=== PATIENT | female | born 1985 | race Two or more races ===

== ENCOUNTER 2017-01-14 14:12 | Emergency (ER) | payer MEDICAID ==
[~2017-01-14] VITALS: Ht 165.1 cm; Wt 59.4 kg
[~2017-01-14 14:12] MED LIST: KEFLEX500 MG ORAL; OMEPRAZOLE40 M1 ORAL
[2017-01-14] MEDS ORDERED: NITROFURANTOIN100 M2 ORAL (14:21)
[2017-01-14] MEDS ORDERED: IRON 100 PLUS1 EACH PO (14:23)
[2017-01-14 14:30] VITALS: BP 113/68
--- NOTE | 2017-01-14 14:39 | Emergency Room Report ---
History of Present Illness General Chief Complaint: Abdominal Pain Source: Patient Present Illness HPI Patient presents with flank pain fever and chills that began on Thursday. The pain is 8 or 9/10 at this time, pressure and aching and constant. 2 weeks ago she had a blood transfusion for hemoglobin of 6.2. This was at [facility]. She states she is always anemic and usually runs a hemoglobin about 7. She's noticed that her eyes are yellowish color. She denies upper respiratory symptoms chest pain. She's been nauseated but no vomiting. She's been moving her bowels without any trouble. Her last period was January 01. Nausea, no vomit. No dyspnea, chest pain, extremity pain. H/O UTI in past. Allergies: Coded Allergies: No Known Allergies (Unverified , 06/15/15) Patient History Past Medical History: see triage record Social History: Denies: smoking - former Social History Narrative youngest 10 yo Last Menstrual Period: 01/01/2017 Reviewed Nursing Documentation: PMH: Agreed, PSxH: Agreed Nursing Documentation-PMH Past Medical History: No History, Except For Hx Gastrointestinal Problems: Yes - kidney and Gallstone Review of Systems All Other Systems: negative except mentioned in HPI Physical Exam Vital Signs Date Time Temp Pulse Resp B/P Pulse Ox O2 Delivery O2 Flow Rate FiO2 01/14/17 14:16 98.2 89 16 113/68 99 Room Air Sp02 EP Interpretation: reviewed, normal General Appearance: well appearing, no apparent distress, GCS 15 Head: normocephalic Eyes: bilateral eye EOMI, bilateral eye PERRL, bilateral eye scleral icterus ENT: moist mucus membranes Neck: supple Respiratory: lungs clear, normal breath sounds Cardiovascular #1: regular rate, rhythm Cardiovascular #2: 2+ radial (R) Gastrointestinal: normal inspection, normal bowel sounds, non tender, no mass, non-distended Genitourinary: CVA tenderness (R) Musculoskeletal: back normal, gait/station normal, normal range of motion Neurologic: alert, oriented x3, grossly normal Psychiatric: mood/affect normal Skin: normal inspection, warm/dry Medical Decision Making Diagnostic Impression: Primary Impression: Pyelonephritis Additional Impression: History of blood transfusion ER Course The patient presents with flank pain, fever with scleral icterus. Differential includes arthritis, transfusion reaction, UTI, muscle strain, viral syndrome amongst others. Evaluation will be with laboratory including transfusion reaction testing, CBC, CMP blood cultures and lactate. The patient be treated with IV hydration and also Toradol. Pyuria present. IV rocephin begun. Elevated bili. Haptoglobin high. H/H improved (from baseline and reported transfusion. Eyal pending. Improved with treatment. Discussed findings. Patient stable for outpatient observation and treatment. Laboratory Tests Test 01/14/17 14:45 White Blood Count 10.3 K/UL (4.8-10.8) Red Blood Count 3.88 M/UL (4.20-5.40) L Hemoglobin 8.5 G/DL (12.0-16.0) L Hematocrit 27.7 % (37.0-47.0) L Mean Corpuscular Volume 71 FL (80-99) L Mean Corpuscular Hemoglobin 21.8 PG (27.0-31.0) L Mean Corpuscular Hemoglobin Concent 30.6 G/DL (32.0-36.0) L Red Cell Distribution Width 22.5 % (11.6-14.8) H Platelet Count 326 K/UL (150-450) Mean Platelet Volume 6.7 FL (6.5-10.1) Neutrophils (%) (Auto) 76.3 % (45.0-75.0) H Lymphocytes (%) (Auto) 12.9 % (20.0-45.0) L Monocytes (%) (Auto) 10.2 % (1.0-10.0) H Eosinophils (%) (Auto) 0.1 % (0.0-3.0) Basophils (%) (Auto) 0.4 % (0.0-2.0) Haptoglobin 209 mg/dL (30-200) H Prothrombin Time 11.5 SEC (9.30-11.50) Prothrombin Time INR 1.1 (0.9-1.1) PTT 29 SEC (23-33) Urine Color Yellow Urine Appearance Clear Urine pH 6 (4.5-8.0) Urine Specific [place] 1.015 (1.005-1.035) Urine Protein 1+ (NEGATIVE) H Urine Glucose (UA) Negative (NEGATIVE) Urine Ketones Negative (NEGATIVE) Urine Occult Blood 4+ (NEGATIVE) H Urine Nitrite Negative (NEGATIVE) Urine Bilirubin Negative (NEGATIVE) Urine Urobilinogen 1 MG/DL (0.0-1.0) H Urine Leukocyte Esterase 2+ (NEGATIVE) H Urine RBC 2-4 /HPF (0 - 2) H Urine WBC 5-10 /HPF (0 - 2) H Urine Squamous Epithelial Cells Few /LPF (NONE/OCC) Urine Bacteria Moderate /HPF (NONE) H Urine HCG, Qualitative Negative Sodium Level 137 mEQ/L (135-145) Potassium Level 3.5 mEQ/L (3.4-4.9) Chloride Level 98 mEQ/L (98-107) Carbon Dioxide Level 23 mEQ/L (20-30) Anion Gap 16 (5-15) H Blood Urea Nitrogen 5 mg/dL (7-23) L Creatinine 0.5 mg/dL (0.5-0.9) Estimate Glomerular Filtration Rate > 60 mL/min (>60) Glucose Level 105 mg/dL (74-106) Lactic Acid Level 0.80 mmol/L (0.66-2.22) Calcium Level 9.5 mg/dL (8.6-10.2) Total Bilirubin 2.0 mg/dL (0.0-1.2) H Direct Bilirubin 0.3 mg/dL (0.1-0.3) Aspartate Amino Transferase (AST) 15 U/L (5-40) Alanine Aminotransferase (ALT) 11 U/L (3-33) Alkaline Phosphatase 63 U/L (35-104) Total Protein 7.4 g/dL (6.6-8.7) Albumin 4.0 g/dL (3.5-5.2) Globulin 3.4 g/dL Albumin/Globulin Ratio 1.1 (1.0-2.7) Lipase 17 U/L (< 60) Last Vital Signs Date Time Temp Pulse Resp B/P Pulse Ox O2 Delivery O2 Flow Rate FiO2 01/14/17 18:01 98.2 86 17 115/67 99 Room Air Status: improved Disposition: HOME, SELF-CARE Condition: Improved Scripts Pnv Cmb#21/Iron/Folic Acid ( COMPLETE CAPLET) 1 Each Tablet 1 EACH PO DAILY, #30 TAB 1 Refill Prov: Andrea Roman M.D. 01/14/17 Tramadol Hcl* (ULTRAM*) 50 Mg Tablet 50 MG ORAL Q6H Y for For Pain, #10 TAB 0 Refills Prov: Andrea Roman M.D. 01/14/17 Cephalexin* (KEFLEX*) 500 Mg Capsule 500 MG ORAL Q6H, #40 CAP 0 Refills Prov: Andrea Roman M.D. 01/14/17 Andrea Roman M.D. Jan 14, 2017 14:39
[2017-01-14] MEDS ORDERED: Ketorolac 30mg Inj IV ONE (14:45)
[2017-01-14 15:17] LABS: INR 1.1 (0.9-1.1); PROTHROMBIN TIME 11.5 SEC (9.30-11.50)
[2017-01-14 15:21] LABS: APPEARANCE,URINE CLEAR; BASOPHILS % (AUTO) 0.4 % (0.0-2.0); EOSINOPHILS % (AUTO) 0.1 % (0.0-3.0); KETONES,URINE NEGATIVE (NEGATIVE); LEUKOCYTE ESTERASE ,URINE 2+ (NEGATIVE); LYMPHOCYTES % (AUTO) 12.9 % (20.0-45.0); MEAN CORPUSCULAR HEMOGLOBIN 21.8 PG (27.0-31.0); MEAN CORPUSCULAR HGB CONC 30.6 G/DL (32.0-36.0); MEAN CORPUSCULAR VOLUME 71 FL (80-99); MEAN PLATELET VOLUME 6.7 FL (6.5-10.1); MONOCYTES % (AUTO) 10.2 % (1.0-10.0); NEUTROPHILS % (AUTO) 76.3 % (45.0-75.0); NITRITE,URINE NEGATIVE (NEGATIVE); PH,URINE 6 (4.5-8.0); PLATELET COUNT 326 K/UL (150-450); PROTEIN,URINE 1+ (NEGATIVE); RED BLOOD COUNT 3.88 M/UL (4.20-5.40); RED CELL DISTRIBUTION WIDTH 22.5 % (11.6-14.8); UROBILINOGEN,URINE 1 MG/DL (0.0-1.0); WHITE BLOOD COUNT 10.3 K/UL (4.8-10.8)
[2017-01-14 15:27] LABS: BACTERIA,URINE MODERATE /HPF; SQUAMOUS EPITHELIAL CELL,UR FEW /LPF (NONE/OCC)
[2017-01-14 15:35] LABS: CALCIUM 9.5 mg/dL (8.6-10.2); CARBON DIOXIDE 23 mEQ/L (20-30); CREATININE 0.5 mg/dL (0.5-0.9); GLOMERULAR FILTRATION RATE > 60 mL/min (>60)
[2017-01-14 15:36] LABS: ALANINE AMINOTRANSFERASE 11 U/L (3-33); ALBUMIN/GLOBULIN RATIO 1.1 (1.0-2.7); ANION GAP 16 (5-15); ASPARTATE AMINO TRANSFERASE 15 U/L (5-40); CHLORIDE 98 mEQ/L (98-107); HEMOLYSIS 0; LIPASE 17 U/L (< 60); POTASSIUM 3.5 mEQ/L (3.4-4.9); SODIUM 137 mEQ/L (135-145); TOTAL PROTEIN 7.4 g/dL (6.6-8.7)
[2017-01-14] MEDS ORDERED: cefTRIAXone 1 GM in NS 55 ML IVPB ONE (15:45)
[2017-01-14 16:03] LABS: BILIRUBIN,DIRECT 0.3 mg/dL (0.1-0.3)
[2017-01-14] MEDS ORDERED: TRAMADOL HCL50 MG ORAL (16:52)
[2017-01-14] MEDS ORDERED: PRENATAL COMPL1 EAC1 PO (16:52)
[2017-01-14] MEDS ORDERED: KEFLEX500 MG ORAL (16:52)
[2017-01-14 17:59] VITALS: BP 115/67
[2017-01-14 18:01] VITALS: BP 115/67
== END 2017-01-14 18:07 | disposition home or self-care (01) ==
LOC: EMR 14:40
DX: N12 Tubulo-interstitial nephritis, not specified as acute or chronic (principal); Z86.2 Personal history of diseases of the blood and blood-forming organs and certain disorders involving the immune mechanism; R11.0 Nausea; Z87.891 Personal history of nicotine dependence
CPT/HCPCS: 36415; 80053; 81003; 81025; 82248; 83010; 83605; 83690; 85025; 85610; 85730; 86850; 86880; 86900; 86901; 87040; 87086; 87181; 96374; 96375; 99284; J0696; J1885; J2405

== ENCOUNTER 2018-08-21 14:07 | Emergency (ER) | payer MEDICAID ==
[~2018-08-21] VITALS: Ht 165.1 cm; Wt 61.2 kg
[~2018-08-21 14:07] MED LIST changes: +IRON 100 PLUS1 EACH PO; +NITROFURANTOIN100 M2 ORAL; +PRENATAL COMPL1 EAC1 PO; +TRAMADOL HCL50 MG ORAL
[2018-08-21 14:16] VITALS: BP 113/58
--- NOTE | 2018-08-21 14:18 | NUR ---
ED Nurse Note: pt walked in c/o left breast pain x 2days, denies any discharge, abnormal lumps or bumps, injuries or trauma at this time. Noted tenderness on left upper/lateral side of chest and breast area, no discharge, no abormal lumps or lesions found at this time, skin intact, will cont monitor.
[2018-08-21] MEDS ORDERED: NKM (14:19)
--- NOTE | 2018-08-21 14:24 | Emergency Room Report ---
History of Present Illness General Chief Complaint: Pain Source: Patient, Medical Record Present Illness HPI The patient is a 33-year-old female presenting for left breast pain. She states that this began yesterday for no known reason. Described as a 7 out of 10 sharp sensation. Worse with movement. She denies any known injury. She denies any nipple discharge or skin changes. She has not felt any lumps in her breast. She is not breast-feeding. She denies any other symptoms including fever, chills, night sweats, weight loss, shortness of breath, palpitations Pt states she cannot be as she had tubal ligation Allergies: Coded Allergies: No Known Allergies (Unverified , 06/15/15) Patient History Past Medical History: see triage record Pertinent Family History: none Last Menstrual Period: 08/14/18 Reviewed Nursing Documentation: PMH: Agreed; PSxH: Agreed Nursing Documentation-PMH Past Medical History: No History, Except For Hx Cardiac Problems: No - Anemia Hx Gastrointestinal Problems: Yes - hx of kidney stone and gallbladder removed 2015 Review of Systems All Other Systems: negative except mentioned in HPI Physical Exam Vital Signs Date Time Temp Pulse Resp B/P (MAP) Pulse Ox O2 Delivery O2 Flow Rate FiO2 08/21/18 14:16 97.9 84 18 113/58 99 Room Air Sp02 EP Interpretation: reviewed, normal General Appearance: no apparent distress, alert, GCS 15, non-toxic Head: normocephalic, atraumatic Eyes: bilateral eye normal inspection, bilateral eye PERRL Respiratory: lungs clear, normal breath sounds, speaking full sentences, other - breast exam done with female nurse in room. Non tender to soft touch. No masses. No skin changes Cardiovascular #1: regular rate, rhythm, no edema Musculoskeletal: back normal, gait/station normal, normal range of motion Neurologic: alert, oriented x3, responsive, motor strength/tone normal, sensory intact, speech normal Psychiatric: judgement/insight normal, memory normal, mood/affect normal, no suicidal/homicidal ideation Skin: normal color, no rash, warm/dry, well hydrated Medical Decision Making PA Attestation Dr. Au is my supervising physician. Patient management was discussed with my supervising physician Diagnostic Impression: Primary Impression: Pectoralis muscle strain Qualified Codes: S29.011A - Strain of muscle and tendon of front wall of thorax, initial encounter ER Course The patient is a 33-year-old female presenting for left breast pain. Differential diagnoses considered but not limited to muscle strain, cellulitis, mastitis, abscess, contusion, malignancy, among others Physical exam: Afebrile. No apparent distress Breast exam done with female nurse in room: No tenderness with soft palpation. No skin changes. No nipple discharge. No masses palpated. There is tenderness with hard palpation over the left upper chest. Lungs clear to auscultation bilaterally RRR The patient was told this is likely muscular in nature but was told she needs to follow-up with her primary doctor as precaution. She was told she will need ultrasound. Pain medication prescribed ER precautions given Last Vital Signs Date Time Temp Pulse Resp B/P (MAP) Pulse Ox O2 Delivery O2 Flow Rate FiO2 08/21/18 14:16 97.9 84 18 113/58 99 Room Air Status: improved Disposition: HOME, SELF-CARE Condition: Improved Scripts Methocarbamol* (ROBAXIN-750*) 750 Mg Tablet 750 MG PO TID, #21 TAB 0 Refills Prov: RENATE LUIS P.Lynne 08/21/18 Ibuprofen* (MOTRIN*) 600 Mg Tablet 600 MG ORAL Q8H PRN for For Pain, #30 TAB 0 Refills Prov: RENATE LUIS P.A. 08/21/18 RENATE LUIS Aug 21, 2018 14:24
[2018-08-21] MEDS ORDERED: ROBAXIN-750750 MG PO (14:28)
[2018-08-21] MEDS ORDERED: IBUPROFEN600 MG ORAL (14:28)
--- NOTE | 2018-08-21 14:35 | NUR ---
ED Nurse Note: pt discharge instruction w/ prescription provided per ERMD order, pt education done via discussion and hand out, wristband removed, pt advised to follow up with pcp or return to ed if s/s worsen or new s/s develop, pt verbalized understanding and agrees with plan, all belongings left with pt. pt ambulatory w/ steady gait, vss, airway intact, resp even and unlabored.
[2018-08-21 15:16] VITALS: BP 116/68
== END 2018-08-21 14:55 | disposition home or self-care (01) ==
LOC: EMR 14:30
DX: S29.011A Strain of muscle and tendon of front wall of thorax, initial encounter (principal); X58.XXXA Exposure to other specified factors, initial encounter; Y92.9 Unspecified place or not applicable
CPT/HCPCS: 99282

== ENCOUNTER 2019-02-09 10:48 | Emergency (ER) | payer MEDICAID ==
[~2019-02-09] VITALS: Ht 165.1 cm; Wt 61.7 kg
[~2019-02-09 10:48] MED LIST changes: +IBUPROFEN600 MG ORAL; +NKM; +ROBAXIN-750750 MG PO
[2019-02-09 11:12] VITALS: BP 123/68
--- NOTE | 2019-02-09 11:18 | NUR ---
ED Nurse Note: Patient walked in ED c/o dizziness and blurry vision started this morning. Patient aaox4, states she has hx of anemia. Denies n/v/d. Placed on garage door service technician.
[2019-02-09 11:46] LABS: HEMATOCRIT 24.5 % (37.0-47.0); HEMOGLOBIN 7.2 G/DL (12.0-16.0); MEAN CORPUSCULAR VOLUME 64 FL (80-99); PLATELET COUNT 338 K/UL (150-450); RED BLOOD COUNT 3.81 M/UL (4.20-5.40); RED CELL DISTRIBUTION WIDTH 18.7 % (11.6-14.8); WHITE BLOOD COUNT 5.1 K/UL (4.8-10.8)
--- NOTE | 2019-02-09 11:48 | NUR ---
ED Nurse Note: IV fluids started, patient resting in bed. No c/o pain at this time.
[2019-02-09 11:56] LABS: ANION GAP 11 mmol/L (5-15); BLOOD UREA NITROGEN 7 mg/dL (7-18); CALCIUM 9.4 MG/DL (8.5-10.1); CARBON DIOXIDE 25 MMOL/L (21-32); CHLORIDE 102 MMOL/L (98-107); CREATININE 0.6 MG/DL (0.55-1.30); SODIUM 138 MMOL/L (136-145)
[2019-02-09 11:58] LABS: APPEARANCE,URINE CLEAR; BILIRUBIN, URINE NEGATIVE (NEGATIVE); GLUCOSE, URINE (UA) NEGATIVE (NEGATIVE); KETONES,URINE NEGATIVE (NEGATIVE); LEUKOCYTE ESTERASE ,URINE NEGATIVE (NEGATIVE); NITRITE,URINE NEGATIVE (NEGATIVE); PH,URINE 7 (4.5-8.0); PROTEIN,URINE 1+ (NEGATIVE); UROBILINOGEN,URINE 1 MG/DL (0.0-1.0)
[2019-02-09] MEDS ORDERED: cefTRIAXone 1 GM in NS 55 ML IVPB ONE (12:00)
[2019-02-09 12:03] LABS: COLOR,URINE YELLOW
[2019-02-09 12:06] LABS: ALANINE AMINOTRANSFERASE 15 U/L (12-78); ALBUMIN 4.6 G/DL (3.4-5.0); ALBUMIN/GLOBULIN RATIO 1.4 (1.0-2.7); ALKALINE PHOSPHATASE 59 U/L (46-116); ASPARTATE AMINO TRANSFERASE 20 U/L (15-37); BILIRUBIN,TOTAL 2.7 MG/DL (0.2-1.0)
[2019-02-09 12:07] LABS: BILIRUBIN,DIRECT 0.3 MG/DL (0.0-0.3)
[2019-02-09] MEDS ORDERED: FERROUS SULFAT325 MG ORAL (12:13)
[2019-02-09 13:10] VITALS: BP 115/86
--- NOTE | 2019-02-09 13:10 | NUR ---
ER DISCHARGE NOTE: Patient is cleared to be discharged per ERMD, pt is aox4, on room air, with stable vital signs. pt was given dc and prescription instructions, pt was able to verbalize understanding, pt id band and iv site removed without complications. pt is able to ambulate with steady gait. pt took all belongings.
--- NOTE | 2019-02-15 21:57 | Emergency Room Report ---
History of Present Illness General Chief Complaint: Dizziness Source: Patient, Medical Record Present Illness HPI Patient is a 34-year-old female who presented after increased dizziness and near syncope. Patient had previous history of anemia. She reports having some recent laboratory testing which showed low hemoglobin. On HemoCue. Patient reports having dizziness with standing as well as increased generalized weakness. Gradual onset. She reports having some heavy menses. She states she drinks alcohol regularly. She reports friends telling her that she looks more yellow. Allergies: Coded Allergies: No Known Allergies (Unverified , 06/15/15) Patient History Past Medical History: see triage record Last Menstrual Period: 02/01/19 Reviewed Nursing Documentation: PMH: Agreed; PSxH: Agreed Nursing Documentation-PMH Past Medical History: No History, Except For Hx Cardiac Problems: No - Anemia Hx Gastrointestinal Problems: Yes - hx of kidney stone and gallbladder removed 2015 Review of Systems All Other Systems: negative except mentioned in HPI Physical Exam General Appearance: alert, GCS 15, Chronically Ill Eyes: bilateral eye PERRL, bilateral eye scleral icterus - mild scleral icterus ENT: hearing grossly normal, normal pharynx Neck: full range of motion Respiratory: lungs clear, normal breath sounds Cardiovascular #1: normal peripheral pulses, no edema Gastrointestinal: normal inspection, soft Musculoskeletal: normal inspection Neurologic: normal inspection, alert, oriented x3, airframe technician III-XII nml as tested Skin: pallor Medical Decision Making Diagnostic Impression: Primary Impression: Acquired hyperbilirubinemia Additional Impression: Anemia ER Course Patient presented for near syncope. Differential diagnosis include was not limited to anemia, electrolyte abnormality, sepsis, dehydration among others. Because of complexity of patient's case laboratory testing and imaging studies were ordered. Patient was noted to have significant anemia on laboratory testing. Patient was advised that she needed a blood transfusion due to significant symptoms associated with her anemia. Patient refused blood transfusion at this time. The patient was advised risk benefits alternatives of leaving AGAINST MEDICAL ADVICE and he indicated understanding and all questions are answered patient still continued want to leave and signed AGAINST MEDICAL ADVICE. Despite risks including but not limited to disability and worsening of current lifestyle. Patient was advised she could return at any time. Patient was given prescription for iron. Labs Test 02/09/19 11:30 White Blood Count 5.1 K/UL (4.8-10.8) Red Blood Count 3.81 M/UL (4.20-5.40) Hemoglobin 7.2 G/DL (12.0-16.0) Hematocrit 24.5 % (37.0-47.0) Mean Corpuscular Volume 64 FL (80-99) Mean Corpuscular Hemoglobin 18.9 PG (27.0-31.0) Mean Corpuscular Hemoglobin Concent 29.4 G/DL (32.0-36.0) Red Cell Distribution Width 18.7 % (11.6-14.8) Platelet Count 338 K/UL (150-450) Mean Platelet Volume 6.2 FL (6.5-10.1) Neutrophils (%) (Auto) % (45.0-75.0) Lymphocytes (%) (Auto) % (20.0-45.0) Monocytes (%) (Auto) % (1.0-10.0) Eosinophils (%) (Auto) % (0.0-3.0) Basophils (%) (Auto) % (0.0-2.0) Differential Total Cells Counted 100 Neutrophils % (Manual) 64 % (45-75) Lymphocytes % (Manual) 29 % (20-45) Monocytes % (Manual) 7 % (1-10) Eosinophils % (Manual) 0 % (0-3) Basophils % (Manual) 0 % (0-2) Band Neutrophils 0 % (0-8) Platelet Estimate Adequate Platelet Morphology Normal Polychromasia 1+ Hypochromasia 2+ Anisocytosis 2+ Microcytosis 2+ Urine Color Yellow Urine Appearance Clear Urine pH 7 (4.5-8.0) Urine Specific [place] 1.005 (1.005-1.035) Urine Protein 1+ (NEGATIVE) Urine Glucose (UA) Negative (NEGATIVE) Urine Ketones Negative (NEGATIVE) Urine Blood 1+ (NEGATIVE) Urine Nitrite Negative (NEGATIVE) Urine Bilirubin Negative (NEGATIVE) Urine Urobilinogen 1 MG/DL (0.0-1.0) Urine Leukocyte Esterase Negative (NEGATIVE) Urine RBC 0-2 /HPF (0 - 2) Urine WBC 0-2 /HPF (0 - 2) Urine Squamous Epithelial Cells Few /LPF (NONE/OCC) Urine Bacteria Few /HPF (NONE) Urine HCG, Qualitative Negative (NEGATIVE) Sodium Level 138 MMOL/L (136-145) Potassium Level 4.0 MMOL/L (3.5-5.1) Chloride Level 102 MMOL/L (98-107) Carbon Dioxide Level 25 MMOL/L (21-32) Anion Gap 11 mmol/L (5-15) Blood Urea Nitrogen 7 mg/dL (7-18) Creatinine 0.6 MG/DL (0.55-1.30) Estimat Glomerular Filtration Rate > 60 mL/min (>60) Glucose Level 96 MG/DL (74-106) Calcium Level 9.4 MG/DL (8.5-10.1) Total Bilirubin 2.7 MG/DL (0.2-1.0) Direct Bilirubin 0.3 MG/DL (0.0-0.3) Aspartate Amino Transf (AST/SGOT) 20 U/L (15-37) Alanine Aminotransferase (ALT/SGPT) 15 U/L (12-78) Alkaline Phosphatase 59 U/L (46-116) Total Protein 7.9 G/DL (6.4-8.2) Albumin 4.6 G/DL (3.4-5.0) Globulin 3.3 g/dL Albumin/Globulin Ratio 1.4 (1.0-2.7) Status: unchanged Disposition: AGAINST MEDICAL ADVICE Condition: Serious Scripts Ferrous Sulfate* (FERROUS SULFATE*) 325 Mg Tablet 325 MG ORAL DAILY, #30 TAB 0 Refills Prov: Ashish Lara MD 02/09/19 Referrals: [facility],REFERRING (PCP) Patient Instructions: Anemia, Nonspecific Additional Instructions: Return if you change your mind. Ashish Lara MD Feb 15, 2019 21:57
== END 2019-02-09 13:10 | disposition home or self-care (01) ==
LOC: EMR 11:37
DX: E80.6 Other disorders of bilirubin metabolism (principal); D64.9 Anemia, unspecified; R55 Syncope and collapse; Z90.49 Acquired absence of other specified parts of digestive tract; Z87.442 Personal history of urinary calculi
CPT/HCPCS: 36415; 80053; 81003; 81025; 82248; 85007; 85025; 86850; 86900; 86901; 96361; 96365; 99284; J0696

== ENCOUNTER 2019-05-06 12:50 | Emergency (ER) | payer MEDICAID ==
[~2019-05-06] VITALS: Ht 165.1 cm; Wt 59.9 kg
[~2019-05-06 12:50] MED LIST changes: +FERROUS SULFAT325 MG ORAL
[2019-05-06] MEDS ORDERED: Ketorolac 30mg Inj IV ONE (13:15)
--- NOTE | 2019-05-06 13:20 | Emergency Room Report ---
History of Present Illness General Chief Complaint: Abnormal Labs Source: Patient, Medical Record Present Illness HPI Patient presents have been told that her hemoglobin is 6.3 in outside clinic. She is dizzy when she stands up has migraines and gets short of breath and feels extremely weak. She was seen in January and told she needs to have blood transfusions at that time but signed out AGAINST MEDICAL ADVICE because she had a family emergency. Her menstruations are heavy. She had a tubal ligation she does not take control pills at this time. Her last blood transfusion was 2 years ago. Her last menstruation was April 30. No fevers, chills, sore throat, chest pain, palpitations, nausea, vomiting, diarrhea, dysuria, abdominal pain, joint pain, rashes, depression, anxiety, visual changes. Allergies: Coded Allergies: No Known Allergies (Unverified , 06/15/15) Patient History Past Medical History: see triage record Past Surgical History: helio Social History: Reports: smoking, drug use - see tox Social History Narrative medical reviewer Last Menstrual Period: 04/30/19 Reviewed Nursing Documentation: PMH: Agreed; PSxH: Agreed Nursing Documentation-PMH Past Medical History: No History, Except For Hx Cardiac Problems: No - Anemia Hx Gastrointestinal Problems: Yes - hx of kidney stone and gallbladder removed 2015 Review of Systems All Other Systems: negative except mentioned in HPI Physical Exam Vital Signs Date Time Temp Pulse Resp B/P (MAP) Pulse Ox O2 Delivery O2 Flow Rate FiO2 05/06/19 12:59 98.2 81 16 108/66 (80) 99 Room Air Sp02 EP Interpretation: reviewed, normal General Appearance: well appearing, no apparent distress, GCS 15 Head: normocephalic Eyes: bilateral eye PERRL, bilateral eye EOMI, bilateral eye conjunctivae pale ENT: moist mucus membranes Neck: supple Respiratory: lungs clear, normal breath sounds Cardiovascular #1: regular rate, rhythm Cardiovascular #2: 2+ radial (R) Gastrointestinal: normal inspection, normal bowel sounds, non tender, no mass, non-distended Genitourinary: no CVA tenderness Musculoskeletal: back normal, gait/station normal, normal range of motion Neurologic: alert, oriented x3, practice administrator III-XII nml as tested, motor strength/tone normal, DTRs symmetric, sensory intact, cerebellar normal, normal gait, speech normal Psychiatric: mood/affect normal Skin: warm/dry, pallor, other - Tattoos Medical Decision Making Diagnostic Impression: Primary Impression: Symptomatic anemia Additional Impressions: Heavy menses Qualified Codes: N92.0 - Excessive and frequent menstruation with regular cycle Substance abuse Elevated bilirubin ER Course Presents with alleged low hemoglobin with symptoms. Differential includes hemorrhagic shock, chronic anemia, symptomatic anemia, heavy periods amongst others. Evaluation with EKG, and labs. Patient will receive IV hydration initially and also a dose of Toradol. Depending on the hemoglobin the patient may need to be admitted to the hospital. EKG was normal sinus rhythm normal EKG. Hemoglobin 7.3. Tox screen positive for methamphetamine. She is somewhat improved with treatment however needs to have blood transfusions. With hydration one would expect the hemoglobin to be less now. No active bleeding at the moment. Headache resolved. Presented to Dr. Mills who accepts the patient. Laboratory Tests Test 05/06/19 13:20 05/06/19 13:45 White Blood Count 6.4 K/UL (4.8-10.8) Red Blood Count 3.79 M/UL (4.20-5.40) L Hemoglobin 7.2 G/DL (12.0-16.0) L Hematocrit 24.2 % (37.0-47.0) L Mean Corpuscular Volume 64 FL (80-99) L Mean Corpuscular Hemoglobin 18.9 PG (27.0-31.0) L Mean Corpuscular Hemoglobin Concent 29.5 G/DL (32.0-36.0) L Red Cell Distribution Width 18.3 % (11.6-14.8) H Platelet Count 325 K/UL (150-450) Mean Platelet Volume 5.3 FL (6.5-10.1) L Neutrophils (%) (Auto) % (45.0-75.0) Lymphocytes (%) (Auto) % (20.0-45.0) Monocytes (%) (Auto) % (1.0-10.0) Eosinophils (%) (Auto) % (0.0-3.0) Basophils (%) (Auto) % (0.0-2.0) Differential Total Cells Counted 100 Neutrophils % (Manual) 66 % (45-75) Lymphocytes % (Manual) 32 % (20-45) Monocytes % (Manual) 2 % (1-10) Eosinophils % (Manual) 0 % (0-3) Basophils % (Manual) 0 % (0-2) Band Neutrophils 0 % (0-8) Platelet Estimate Adequate Platelet Morphology Normal Hypochromasia 1+ Anisocytosis 1+ Microcytosis 2+ Prothrombin Time 11.4 SEC (9.30-11.50) Prothrombin Time INR 1.1 (0.9-1.1) PTT 23 SEC (23-33) Sodium Level 141 MMOL/L (136-145) Potassium Level 3.5 MMOL/L (3.5-5.1) Chloride Level 107 MMOL/L (98-107) Carbon Dioxide Level 25 MMOL/L (21-32) Anion Gap 9 mmol/L (5-15) Blood Urea Nitrogen 13 mg/dL (7-18) Creatinine 0.6 MG/DL (0.55-1.30) Estimate Glomerular Filtration Rate > 60 mL/min (>60) Glucose Level 85 MG/DL (74-106) Calcium Level 8.8 MG/DL (8.5-10.1) Total Bilirubin 2.3 MG/DL (0.2-1.0) H Direct Bilirubin 0.4 MG/DL (0.0-0.3) H Aspartate Amino Transferase (AST) 17 U/L (15-37) Alanine Aminotransferase (ALT) 20 U/L (12-78) Alkaline Phosphatase 58 U/L (46-116) Total Protein 7.7 G/DL (6.4-8.2) Albumin 3.9 G/DL (3.4-5.0) Globulin 3.8 g/dL Albumin/Globulin Ratio 1.0 (1.0-2.7) Lipase 173 U/L (73-393) Urine Color Yellow Urine Appearance Clear Urine pH 5 (4.5-8.0) Urine Specific [place] 1.020 (1.005-1.035) Urine Protein 2+ (NEGATIVE) H Urine Glucose (UA) Negative (NEGATIVE) Urine Ketones 2+ (NEGATIVE) H Urine Blood 4+ (NEGATIVE) H Urine Nitrite Negative (NEGATIVE) Urine Bilirubin Negative (NEGATIVE) Urine Urobilinogen 4 MG/DL (0.0-1.0) H Urine Leukocyte Esterase 2+ (NEGATIVE) H Urine RBC 2-4 /HPF (0 - 2) H Urine WBC 2-4 /HPF (0 - 2) Urine Squamous Epithelial Cells Few /LPF (NONE/OCC) Urine Calcium Oxalate Crystals Few /LPF (NONE) Urine Bacteria Few /HPF (NONE) Urine Mucus Many /LPF (NONE/OCC) H Urine HCG, Qualitative Negative (NEGATIVE) Urine Opiates Screen Negative (NEGATIVE) Urine Barbiturates Screen Negative (NEGATIVE) Phencyclidine (PCP) Screen Negative (NEGATIVE) Urine Amphetamines Screen Positive (NEGATIVE) H Urine Benzodiazepines Screen Negative (NEGATIVE) Urine Cocaine Screen Negative (NEGATIVE) Urine Marijuana (THC) Screen Positive (NEGATIVE) H EKG Diagnostic Results Rate: normal Rhythm: NSR ST Segments: no acute changes Rhythm Strip Diag. Results EP Interpretation: yes Rhythm: NSR, no PVC's, no ectopy Last Vital Signs Date Time Temp Pulse Resp B/P (MAP) Pulse Ox O2 Delivery O2 Flow Rate FiO2 05/06/19 17:33 97.4 71 16 100/46 94 Room Air Status: improved Disposition: XFER SHT-TRM HOSP Condition: Serious Andrea Roman MD May 06, 2019 13:20
--- NOTE | 2019-05-06 13:27 | NUR ---
ED Nurse Note: PATIENT WALKED IN C/O INCREASED TIREDNESS FOR THE PAST FEW DAYS; REPORTS NO VAGINAL BLEEDING OR DARK COLORED EMESIS OR BM. PATIENT HAD HEAVY MENSTURAL CYCLE AND RECEIVED BLOOD TRANSFUSION 2 YEARS AGO. PATIENT DOES NOT TAKE IRON SUPPLEMENT DAILY. PATIENT AWAKE, ALERT, ORIENTED X 4. REGULAR, UNLABORED BREATHING NOTED. AMBULATING WITH STEADY GAIT. PLACED PATIENT ON ECHOCARDIOLOGIST.
[2019-05-06 13:40] LABS: HEMATOCRIT 24.2 % (37.0-47.0); HEMOGLOBIN 7.2 G/DL (12.0-16.0); MEAN CORPUSCULAR VOLUME 64 FL (80-99); PLATELET COUNT 325 K/UL (150-450); RED BLOOD COUNT 3.79 M/UL (4.20-5.40); RED CELL DISTRIBUTION WIDTH 18.3 % (11.6-14.8); WHITE BLOOD COUNT 6.4 K/UL (4.8-10.8)
[2019-05-06 13:50] LABS: INR 1.1 (0.9-1.1)
[2019-05-06 13:58] LABS: ANION GAP 9 mmol/L (5-15); BLOOD UREA NITROGEN 13 mg/dL (7-18); CALCIUM 8.8 MG/DL (8.5-10.1); CARBON DIOXIDE 25 MMOL/L (21-32); CHLORIDE 107 MMOL/L (98-107); CREATININE 0.6 MG/DL (0.55-1.30); POTASSIUM 3.5 MMOL/L (3.5-5.1); SODIUM 141 MMOL/L (136-145)
--- NOTE | 2019-05-06 14:00 | NUR ---
ED Nurse Note: REPORT GIVEN TO NAILA WOOD. PATIENT RESTING IN BED.
[2019-05-06 14:06] LABS: APPEARANCE,URINE CLEAR; BILIRUBIN, URINE NEGATIVE (NEGATIVE); GLUCOSE, URINE (UA) NEGATIVE (NEGATIVE); KETONES,URINE 2+ (NEGATIVE); LEUKOCYTE ESTERASE ,URINE 2+ (NEGATIVE); NITRITE,URINE NEGATIVE (NEGATIVE); PH,URINE 5 (4.5-8.0); PROTEIN,URINE 2+ (NEGATIVE); UROBILINOGEN,URINE 4 MG/DL (0.0-1.0)
[2019-05-06 14:08] LABS: ALANINE AMINOTRANSFERASE 20 U/L (12-78); ALBUMIN 3.9 G/DL (3.4-5.0); ALKALINE PHOSPHATASE 58 U/L (46-116); ASPARTATE AMINO TRANSFERASE 17 U/L (15-37); BILIRUBIN,TOTAL 2.3 MG/DL (0.2-1.0)
[2019-05-06 14:10] LABS: BILIRUBIN,DIRECT 0.4 MG/DL (0.0-0.3)
[2019-05-06 14:11] LABS: COLOR,URINE YELLOW
--- NOTE | 2019-05-06 14:21 | NUR ---
ED Nurse Note: IVF infusing well. Toradol ivp given for migraine. BP stable.
[2019-05-06 16:00] VITALS: BP 106/51
[2019-05-06 17:33] VITALS: BP 100/46
--- NOTE | 2019-05-06 17:36 | NUR ---
ED Nurse Note: Patient is being transferred to [facility] with [facility] ambulance personnel. Patient awake, alert, oriented x 4. Regular, unlaobred breathing noted. Reports no vaginal bleeding. Patient left with all her belongings.
--- NOTE | 2019-05-09 14:07 | Cardiology Report ---
APPROVED REPORT EKG Measurement Heart [id number] Normal sinus rhythm Normal ECG
== END 2019-05-06 17:39 | disposition short-term general hospital (02) ==
LOC: EMR 13:51
DX: D64.9 Anemia, unspecified (principal); N92.0 Excessive and frequent menstruation with regular cycle; E80.6 Other disorders of bilirubin metabolism; Z90.49 Acquired absence of other specified parts of digestive tract; Z87.442 Personal history of urinary calculi; F17.200 Nicotine dependence, unspecified, uncomplicated; F15.10 Other stimulant abuse, uncomplicated; F12.10 Cannabis abuse, uncomplicated
CPT/HCPCS: 36415; 80053; 80307; 81003; 81025; 82248; 83690; 85007; 85025; 85610; 85730; 86850; 86900; 86901; 93005; 96361; 96374; J1885; Z7502; 99285